=== PATIENT | female | born 1975 | race Caucasian/White ===

== ENCOUNTER 2016-12-03 16:57 | Emergency (ER) | payer OTHER ==
[~2016-12-03] VITALS: Ht 162.6 cm; Wt 99.8 kg
[2016-12-03] MEDS ORDERED: CARISOPRODOL 3350 MG PO (17:07)
[2016-12-03] MEDS ORDERED: BUTALB-APAP-CA1 EACH PO (17:07)
[2016-12-03] MEDS ORDERED: TEGRETOL200 MG PO (17:07)
[2016-12-03] MEDS ORDERED: PROPRANOLOL 1010 MG PO (17:08)
[2016-12-03] MEDS ORDERED: SEROQUEL 25 MG25 M1 PO (17:08)
[2016-12-03] MEDS ORDERED: TORADOL 10 MG T10 MG PO (17:11)
[2016-12-03 19:02] VITALS: BP 120/68
== END 2016-12-03 19:03 | disposition home or self-care (01) ==
LOC: ER 16:57
DX: G43.909 Migraine, unspecified, not intractable, without status migrainosus (principal); Z88.5 Allergy status to narcotic agent; Z88.8 Allergy status to other drugs, medicaments and biological substances